=== PATIENT | male | born 1970 | race Caucasian/White ===

== ENCOUNTER → 2020-09-18 08:27 | Outpatient (CLI) | payer BC, OTHER, SELFPAY ==
--- NOTE | ~2020-09-18 | MR_ITS ---
EXAMINATION: MR knee LT wo con DATE: 09/18/2020 09:04 INDICATION: Running injury with medial left knee pain.. TECHNIQUE: Magnetic resonance imaging (MRI) of the left knee was performed without intravenous contra st. Sequences included coronal PD-weighted FSE, coronal PD-weighted FS FSE, sagittal T2-weighted FSE , sagittal PD-weighted FS FSE and axial PD weighted fat saturated FSE. COMPARISON: None. FINDINGS: Medial compartment: Tibial meniscal tear with longitudinal horizontal tear extending to the inferior articular surface of the body and posterior horn. At the inner third of the junction of the body and posterior horn there is increased signal extending cephalad also contact the superior articular surface on sagittal serie s 9, images 7 and 9 suggesting a secondary vertical parrot beak configuration tear along the inner t hird of the posterior horn. There is mild partial-thickness cartilage loss throughout the medial comp artment with smooth chondral surface. Lateral compartment: Lateral meniscus is normal. Articular cartilage is normal. Patellofemoral compartment: There is chondral ulceration and deep fissuring with underlying cortical irregularity and subarticula r edema at the cephalad aspect of the medial patellar facet and at the inferomedial aspect of the lat eral facet. Trochlear cartilage is normal. Ligaments and tendons: Anterior and posterior cruciate ligaments are normal. The medial collateral ligament and fibular roseann ateral ligament complex are normal. The extensor mechanism is normal. The visualized medial and later al hamstring tendons as well as the iliotibial band are normal. Fluid: Physiologic amount of fluid in the joint space. No loose osteochondral bodies identified. Osseous/other: There is prominent marrow edema centered about the medial rim of the anterior weightbearing medial fe moral condyle there is subtle linear low signal underlying the articular surface suggesting a small i ntramedullary stress or impaction fracture line. No pathologic marrow replacing process. IMPRESSION: 1. Likely complex tear of the medial meniscus including both a horizontal longitudinal tear of the nikolay dy and posterior horn and secondary parrot-beak configuration tear along the inner third of the poste rior horn. 2. Prominent marrow edema along the medial rim at the anterior weightbearing medial femoral condyle s urrounding subtle linear low signal underlying the articular cortex consistent with a small intramedu llary stress versus impaction fracture line. 3. 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 Reviewed, dictated and finalized at location A. APPLICATION DEVELOPMENT MANAGER IMPRESSION: 1. Likely complex tear of the medial meniscus including both a horizontal longi tudinal tear of the body and posterior horn and secondary parrot-beak configura tion tear along the inner third of the posterior horn. 2. Prominent marrow edema along the medial rim at the anterior weightbearing me dial femoral condyle surrounding subtle linear low signal underlying the articu lar cortex consistent with a small intramedullary stress versus impaction fract ure line. 3. Mild patellofemoral and to lesser medial compartment osteoarthritis with reg ions of high-grade patellar chondromalacia.
== END ==
PROVIDERS: PCP Family Medicine Adolescent Medicine; Visit Provider Family Medicine Adolescent Medicine
DX: M17.12 Unilateral primary osteoarthritis, left knee (principal); M22.42 Chondromalacia patellae, left knee
CPT/HCPCS: 73721

== ENCOUNTER 2020-09-26 13:33 | Outpatient (CLI) | payer BC, OTHER, SELFPAY ==
--- NOTE | ~2020-09-26 | US_ITS ---
EXAMINATION: US venous doppler [facility] DATE: 09/26/2020 14:40 INDICATION: Acute thromboembolism. Left lower limb pain. TECHNIQUE: Grayscale ultrasound images without and with compression and Doppler ultrasound images of the bilateral lower extremity veins were obtained. COMPARISON: None. FINDINGS: The visualized portions of right common femoral vein, profunda (deep) femoral vein, femoral vein, pop liteal vein, posterior tibial veins, peroneal veins, gastrocnemius vein and greater saphenous vein ou tflow are patent. Noncompressible deep venous thrombosis in the proximal to mid left femoral vein and in the mid to dis sheron left popliteal vein. The visualized portions of left common femoral vein, profunda femoral vein, posterior tibial veins, peroneal veins, gastrocnemius vein and greater saphenous vein outflow are pat ent. IMPRESSION: 1. Deep venous thrombosis left femoral and popliteal veins. 2. No deep venous necrosis in the right lower limb. Reviewed, dictated and finalized at location B. CTOR OF VALUATION
== END 2020-09-26 13:34 | disposition home or self-care (01) ==
PROVIDERS: PCP Family Medicine Adolescent Medicine; Visit Provider Orthopaedic Surgery
DX: I82.403 Acute embolism and thrombosis of unspecified deep veins of lower extremity, bilateral (principal); I82.412 Acute embolism and thrombosis of left femoral vein; I82.432 Acute embolism and thrombosis of left popliteal vein
CPT/HCPCS: 93970

== ENCOUNTER → 2020-10-20 02:33 | Outpatient (CLI) | payer BC, OTHER, SELFPAY ==
[2020-10-20 21:58] LABS: SARS-CoV-2 RNA PCR Negative
== END ==
PROVIDERS: PCP Family Medicine Adolescent Medicine; Visit Provider Orthopaedic Surgery
DX: Z01.812 Encounter for preprocedural laboratory examination (principal); Z20.822 Contact with and (suspected) exposure to COVID-19; M22.42 Chondromalacia patellae, left knee
CPT/HCPCS: C9803; U0003; U0005

== ENCOUNTER 2020-10-23 01:08 | Day surgery (SDC) | payer BC, OTHER, SELFPAY ==
[2020-10-16 16:03] VITALS: BMI 27.7
--- NOTE | 2020-10-20 11:37 | PM.IMHP ---
H&P: HPI History of Present Illness Date/Time: 10/20/20 11:37 Chief Complaint: Left knee pain Narrative: Tico Bah is a 50 year old male with left knee pain and mechanical symptoms. Failed conservative treatment with home exercise regimen, rehab, activity modification. Similar problems on right knee status post surgical treatment with excellent results. Presents now for left knee surgery. Review of Systems Constitutional: Constitutional: Denies fever(s) Eyes: Eyes: Denies blurry vision ENT: Reports Normal hearing present Cardiovascular: Cardiovascular: Denies chest pain and Denies dyspnea Respiratory: Respiratory: Denies dyspnea and Denies wheezing Gastrointestinal: Gastrointestinal: Denies abdominal pain Genitourinary: Genitourinary: Denies urinary urgency Musculoskeletal: Musculoskeletal: Reports as per HPI and Denies numbness Integumentary/Breasts: Skin/Breast: Denies changing lesions and Denies sores Neurologic: Reports Normal hearing present, Denies behavioral changes, Denies confusion, Denies numbness and Denies convulsions Psychiatric: Psychiatric: Denies behavioral changes, Denies confusion and Denies hallucinations Endocrine: Endocrine: Denies heat intolerance Hematologic/Lymphatic: Hematologic/Lymphatic: Denies easy bleeding Allergic/Immunologic: Allergic/Immunologic: Denies wheezing PMFSH Past Medical History Medical History Acute medial meniscus tear of left knee Chondromalacia patellae, left knee Claustrophobia DVT (deep venous thrombosis) Synovitis of left knee Surgical History Surgical History History of right knee surgery 2016, Dr. Darden Social History Social History Smoking status: Never smoker Alcohol intake: never Substance use: never Substance use type: does not use Gender identity (if verbalized by the patient): Male Spiritual care concerns: No Meds Home Medications and Allergies Home Medications Medication Instructions Recorded Confirmed Type hcuadgaupisf-xme-xnmpl acid-vit 1 tablet PO DAILY 09/20/20 10/16/20 History K-lycop 400 mcg-20 mcg-370 mcg tablet rivaroxaban [Xarelto] 20 mg PO DAILY 10/16/20 10/16/20 History Allergies Allergy/AdvReac Type Severity Reaction Status Date / Time No Known Allergies Allergy Verified 09/20/20 10:00 Exam Const: General: healthy appearing; No in distress or confusion Orientation/consciousness: oriented to person, oriented to place, oriented to time and No confusion HENMT: Head: normal to inspection, normocephalic and atraumatic Eyes: Conjunctivae: conjunctivae normal Sclera: sclerae normal Neck: Neck: supple and nontender Resp: Effort & Inspection: normal respiratory effort and no audible wheezes Cardio: Rate: regular rate Rhythm: regular rhythm Skin: General skin exam: no rashes or lesions noted Neuro: General: oriented to person, oriented to place, oriented to time and No confusion Extrem: Right upper extremity: normal to inspection Left upper extremity: normal to inspection Left lower extremity: hip/thigh Details: no tenderness and no swelling, knee Details: tenderness ( medial joint line), swelling ( moderate medial joint line and anterior) Location: of the pre-patellar area, abnormal ROM ( active knee extension -10 degrees, flexion 100?. Passive -5 to 110?) Details: pain with passive ROM Details: with extension and with flexion, Zach's Test Details: negative laterally and positive medially and crepitus ( patellofemoral and knee joint with active motion) Location: at the knee and foot Details: vascular exam Details: dorsalis pedis pulse present and normal capillary refill, tendon exam active flexion normal and active extension normal and motor-sensory exam light-touch normal Psych: Affect: normal affect As
[2020-10-23] VITALS (9 sets, daily range): BP systolic 105–153; BP diastolic 65–91; PULSE 63–75; RESP 12–20; TEMP 36.2–36.3; O2SAT 100
[2020-10-23] MEDS: ACETAMINOPHEN 500 MG TABLET 1000 MG PO (06:30)
--- NOTE | 2020-10-23 06:54 | WPDANESEPPF ---
Anes - Initial Pre Proc Eval Procedure: Operation Date: 10/23/20 07:30 Proposed Procedures p Left Knee Arthroscopy, Debride Meniscus, Synovectomy, Chondroplasty, Proceed As Indicated - Joseph Darden MD Date/Time: 10/23/20 06:54 Surgeon: Joseph Darden MD Pre Op Diagnosis: Lt Knee Pain, Left Meniscus Tear, Chondromalasia Patient Data Age: 50 Gender: M Height: 6 ft 2 in Weight: 98 kg Allergies Allergy/AdvReac Type Severity Reaction Status Date / Time No Known Allergies Allergy Verified 09/20/20 10:00 Home Medications Medication Instructions Recorded Confirmed Type ujfpwtlppinn-adk-pfahs acid-vit 1 tablet PO DAILY 09/20/20 10/16/20 History K-lycop 400 mcg-20 mcg-370 mcg tablet rivaroxaban [Xarelto] 20 mg PO DAILY 10/16/20 10/16/20 History Patient hx anesthesia problems: none Family hx anesthesia problems: none PMFSH Past Medical History Medical History Acute medial meniscus tear of left knee Chondromalacia patellae, left knee Claustrophobia DVT (deep venous thrombosis) Synovitis of left knee Surgical History Surgical History History of right knee surgery 2016, Dr. Darden Social History Social History Smoking status: Never smoker Alcohol intake: never Substance use: never Substance use type: does not use Living arrangements: with family Gender identity (if verbalized by the patient): Male Sexual Orientation (if Verbalized by the Patient): Straight or Heterosexual Spiritual care concerns: No Anes - Eval Final PreProcedure Day of Procedure 10/23/20 06:54 Patient weight: overweight Heart: regular rate and rhythm Lungs: clear to auscultation Airway: Mallampati scale class II Neurological: alert and oriented Last oral intake: >/= 8 hours ASA classification: III Emergent: no Anesthetic plan: proceed Anesthesia type and monitoring: general LMA and standard monitoring Informed Consent: The patient's anesthetic plan and its attendant risks and benefits were discussed with the patient/family/POA. Questions were solicited and answers provided to the satisfaction of the patient/family/POA.
[2020-10-23] MEDS: LACTATED RINGERS 1,000 ML 30 ML IV CONT (06:59)
[2020-10-23] MEDS: KETOROLAC 15 MG/ML VIAL (*BKC) IV PUSH (07:00)
--- NOTE | 2020-10-23 07:22 | WPDHPUPDATE1 ---
History and Physical Update Update Date/Time: 10/23/20 07:22 History and Physical has been reviewed, including an updated exam of the patient. There are NO changes in the patient's condition. Covid test negative. Risks, benefits, and alternatives have been discussed and questions answered. Patient agrees to proceed with procedure.
[2020-10-23] MEDS: ceFAZolin 2 GM/D5W 50 ML 2 GM/50 ML BAG IVPB (07:24)
[2020-10-23] MEDS: BUPIVACAINE/EPINEPHRINE 0.5% 30 ML VIAL 10 ML INFILTRATE (08:09)
--- NOTE | 2020-10-23 09:00 | PM.PROC ---
Procedure Note - Detailed Date of procedure: 10/23/20 Pre-op diagnosis: Lt Knee Pain, Left Meniscus Tear, Chondromalasia Left knee synovitis, medial meniscus tear, chondromalacia Post-op diagnosis: same Procedure performed: Left knee arthroscopy with synovectomy medial and lateral compartment, anterior and anterior fat pad, peripatellar with medial and lateral plica., partial medial meniscectomy, chondroplasty patellofemoral and medial femoral condyle. Description of procedure: Indications: Patient is a 50-year-old gentleman with left knee pain and mechanical symptoms. MRI demonstrates synovitis, medial meniscus tear and chondromalacia. Patient failed non operative treatment with therapy, home exercises, activity modifications and anti-inflammatories. Pain on a daily basis with weight-bearing activity. Presents now for operative treatment. Previous operative treatment of the right knee with similar MRI findings and good result. What was done: Informed consent given by patient. Operative extremity marked in preoperative holding area. Patient received intravenous antibiotics. Patient brought to operating room and underwent general anesthetic by anesthesia team. Positioned supine on operating room table. Left leg placed into a posterior thigh leg greco. Foot of the table dropped to 90? and right leg padded out of the field. Time-out performed confirming patient, site of surgery and plan. Left knee prepped and draped in usual sterile surgical fashion using ChloraPrep skin solution. Standard arthroscopic portals made by using a 11 blade knife for the anterior lateral portal 1st. Capsule penetrated bluntly. Camera and inflow started. The below operative findings noted. Intra-articular visualization used to position the anterior medial portal using 22 gauge spinal needle. A 11 blade knife used for the skin and blunt penetration of the capsule. 4.7 millimeter arthroscopic shaver introduced and partial medial meniscectomy of the loose and torn portion performed. Edge of meniscus completed with arthroscopic Wand. Arthroscopic Wand used to perform chondroplasty of the patellofemoral articulation and the medial femoral condyle. Shaver reintroduced and a synovectomy performed of the anterior fat pad and extensive synovium anteriorly, medial and lateral compartments; as well as medial and lateral plica. Bleeding points coagulated with Wand. Knee inspected, no loose pieces noted. 1 liter of irrigant infused and suction out. Arthroscopic cannulas removed. Skin closed with 4 nylon interrupted suture. Local anesthetic with 0.25% Marcaine. Sterile dressing applied. Patient awoken from anesthesia, extubated and taken to recovery room in stable condition. All sponge needle and instrument counts correct at the end of the case. Implants: None Anesthesia: GLMA Surgeon: Joseph Darden MD Estimated blood loss (mL): 5 Tourniquet time (min): 0 Drains: No Packing: No Pathology: none sent Complications: None Condition: stable Disposition: PACU Findings: Left knee arthroscopic visualization showed complex tear of the posterior horn medial meniscus with extension and delamination to the medial root. Tear in the white red zone. Lateral meniscus and compartment intact. Grade 2 chondromalacia medial femoral condyle. Medial tibial plateau intact. ACL and PCL intact. Grade 4 chondromalacia involving the lateral facet of the patella proximally 10 mm x 8 mm. Grade 2 chondromalacia of the remainder of the patella. Grade 1 chondromalacia of the femoral trochlea. Extensive synovitis peripatellar area medial and lateral and anterior compartments. Extensive fat pad hypertrophy. Thickened medial and lateral plica.
== END 2020-10-23 10:25 | disposition home or self-care (01) ==
PROVIDERS: PCP Family Medicine Adolescent Medicine; Visit Provider Orthopaedic Surgery
PROC: (CPT 29870; principal; 2020-10-23 07:30)
DX: S83.232A Complex tear of medial meniscus, current injury, left knee, initial encounter (principal); M22.42 Chondromalacia patellae, left knee; M65.862 Other synovitis and tenosynovitis, left lower leg; Z86.718 Personal history of other venous thrombosis and embolism
CPT/HCPCS: 29876; 29881; A9270; J0690; J1100; J1885; J2250; J2405; J2704; J3010; J7120

== ENCOUNTER 2021-09-13 15:06 | Outpatient (CLI) | payer BC, SELFPAY ==
--- NOTE | ~2021-09-13 | CT_ITS ---
EXAMINATION: CT pelvis w con DATE: 09/13/2021 15:50 INDICATION: Left inguinal hernia. TECHNIQUE: Computed tomography (CT) of the pelvis was performed with 100 mL Omnipaque 350 intravenous contrast. Automated exposure control and iterative reconstruction technique were employed. The dose- length product was 380.61 mGy-cm. COMPARISON: None FINDINGS: There are no dilated loops of bowel. The appendix is normal. There are no pathologically en larged lymph nodes. There is no free intraperitoneal fluid. There are bilateral inguinal hernias cont aining fat. There is mild lumbar spondylosis. IMPRESSION: 1. Bilateral inguinal hernias containing fat. Reviewed, dictated and finalized at location B. ICAL PROJECT MANAGER
--- NOTE | ~2021-09-13 | US_ITS ---
EXAMINATION: US scrotum doppler DATE: 09/13/2021 15:43 INDICATION: Left testicular pain. TECHNIQUE: Grayscale and Doppler ultrasound images of the testes were obtained. COMPARISON: CT pelvis 09/13/2021 FINDINGS: The right testis measures 4.1 x 2.2 x 2.7 cm. The left testis measures 3.9 x 2.1 x 2.6 cm. There is normal vascular flow to both testes. The right epididymis is normal with normal vascular lv w. The left epididymis is normal with normal vascular flow. There is no varicocele or hydrocele. IMPRESSION: 1. Normal testes. Reviewed, dictated and finalized at location B. RIBUTION MANAGER IMPRESSION: 1. Normal testes.
== END 2021-09-13 15:07 | disposition home or self-care (01) ==
LOC: ANHIMG 15:11
PROVIDERS: PCP Family Medicine Adolescent Medicine; Visit Provider Urology
DX: N50.812 Left testicular pain (principal); K40.20 Bilateral inguinal hernia, without obstruction or gangrene, not specified as recurrent
CPT/HCPCS: 72193; 76870; 93976; Q9967

== ENCOUNTER → 2022-04-22 15:29 | Outpatient (CLI) | payer BC, SELFPAY ==
--- NOTE | ~2022-04-22 | XR_ITS ---
EXAMINATION: XR chest 2V Exam Date/Time: 04/22/2022 16:08 CDT HISTORY: R63.4 - Abnormal weight loss Comparison: X-ray RIBS 01/19/2008. RESULT: Lines, tubes, and devices: None. Lungs and pleura: Ill-defined opacity projecting in the peripheral right lower lung without definite correlate in the lateral view. Cardiomediastinal silhouette: Stable. Other: No acute osseous or upper abdominal finding. IMPRESSION: Ill-defined right lower lung opacity, may reflect summation artifact or a focus of infection. Conside r noncontrast CT of the chest for further characterization and to exclude a pulmonary nodule. Reviewed, dictated and finalized at location K. IMPRESSION: Ill-defined right lower lung opacity, may reflect summation artifact or a focus of infection. Consider noncontrast CT of the chest for further characterizatio n and to exclude a pulmonary nodule.
== END ==
PROVIDERS: PCP Family Medicine Adolescent Medicine; Visit Provider Family Medicine Adolescent Medicine
DX: R61 Generalized hyperhidrosis (principal); R63.4 Abnormal weight loss; R91.8 Other nonspecific abnormal finding of lung field
CPT/HCPCS: 71046

== ENCOUNTER 2022-05-07 09:19 | Outpatient (CLI) | payer BC, SELFPAY ==
--- NOTE | ~2022-05-07 | CT_ITS ---
EXAMINATION:CT diagnostic chest wo con DATE: 05/07/2022 09:47 INDICATION: Abnormal chest radiograph. TECHNIQUE: Computed tomography (CT) of the chest was performed without intravenous contrast. Automate d exposure control and iterative reconstruction technique were employed. The dose-length product (DLP ) was 297.76 mGy-cm. COMPARISON: Chest 2 views 04/22/2022 FINDINGS: There is mild scarring at the lung apices. No pleural effusion. The heart size is normal. N o pericardial effusion. There are coronary artery calcifications. There is a 2.7 cm cyst in the liver . There is a 5 mm stone in right kidney. There is mild thoracic spondylosis. IMPRESSION: 1. Mild scarring at the lung apices. Reviewed, dictated and finalized at location A.
== END 2022-05-07 09:20 | disposition home or self-care (01) ==
PROVIDERS: PCP Family Medicine Adolescent Medicine; Visit Provider Family Medicine Adolescent Medicine
DX: R93.89 Abnormal findings on diagnostic imaging of other specified body structures (principal)
CPT/HCPCS: 71250

== ENCOUNTER 2022-11-08 00:25 | Day surgery (SDC) | payer BC, SELFPAY ==
[2022-10-25 13:17] VITALS: BMI 26.4
--- NOTE | 2022-11-06 14:35 | PC.NURSE ---
OFFICE CALLED AND MESSAGE LEFT FOR DR. MADERA REGARDING ANTIBIOTICS DAY OF PROCEDURE REQUESTED PER PT FOR PENILE IMPLANT DONE IN 2021, DR. MADERA AGREES PT SHOULD HAVE ANTIBIOTICS AND I ORDERED ACCORDING TO HIS SURGICAL PREAUTH. JOINT REPLACEMENT. PT CALLED AND INFORMED.
[2022-11-08 10:20] VITALS: BP 123/94; PULSE 81; RESP 18; TEMP 36.1; O2SAT 100
--- NOTE | 2022-11-08 10:32 | P.PNAN_ITS ---
Anes - Initial Pre Proc Eval Procedure: Operation Date: 11/08/22 11:15 Proposed Procedures p Screening Colonoscopy - Isaiah Patten MD Date/Time: 11/08/22 10:32 Surgeon: Isaiah Patten MD Pre Op Diagnosis: neoplasm screening Patient Data Age: 52 Gender: M Height: 1.88 m Weight: 96.2 kg Last Vital Signs Temp 36.1 C L 11/08/22 10:20 Pulse 81 11/08/22 10:20 Resp 18 11/08/22 10:20 BP 123/94 H 11/08/22 10:20 Pulse Ox 100 11/08/22 10:20 O2 Del Method Room Air 11/08/22 10:20 Allergies Allergy/AdvReac Type Severity Reaction Status Date / Time sulfamethoxazole Allergy Mild Rash Verified 11/08/22 10:14 [From Bactrim] trimethoprim [From Bactrim] Allergy Mild Rash Verified 11/08/22 10:14 Home Medications Medication Instructions Recorded Confirmed Type No Home Medications 11/08/22 11/08/22 History Patient hx anesthesia problems: none Family hx anesthesia problems: none Results Review: All pre-operative results and documents have been reviewed as part of the pre- operative evaluation. [facility] Past Medical History Medical History (Updated 04/24/22 @ 08:31 by Katherine Banda) Acute medial meniscus tear of left knee Chondromalacia patellae, left knee Claustrophobia DVT (deep venous thrombosis) Hyperthyroidism Synovitis of left knee Surgical History Surgical History H/O left knee surgery Torn Meniscus 10/22 H/O vasectomy History of right knee surgery 2015, Dr. 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 Gender identity (if verbalized by the patient): Male Sexual Orientation (if Verbalized by the Patient): Straight or Heterosexual Spiritual care concerns: No Anes - Eval Final PreProcedure Day of Procedure 11/08/22 10:32 Patient weight: overweight Heart: regular rate and rhythm Lungs: clear to auscultation Airway: Mallampati scale class II Neurological: alert and oriented Last oral intake: >/= 8 hours ASA classification: II Emergent: no Anesthetic plan: proceed Anesthesia type and monitoring: general GIVS and standard monitoring Results Review: All pre-operative results and documents have been reviewed as part of the pre- operative evaluation. Informed Consent: The patient's anesthetic plan and its attendant risks and benefits were discussed with the patient/family/POA. Questions were solicited and answers provided to the satisfaction of the patient/family/POA.
[2022-11-08] MEDS: AMPICILLIN 2 GM/NS 100 ML 2 GM/100 ML BAG IVPB (10:39)
[2022-11-08] MEDS: LACTATED RINGERS 1,000 ML 150 ML IV CONT (10:40)
--- NOTE | 2022-11-08 10:52 | PM.HPGS ---
History of Present Illness History of Present Illness Consent: Risks, benefits, and alternatives have been discussed and questions answered. Patient agrees to proceed with procedure. Chief complaint: neoplasm screening Narrative: Tico Bah is a 52 year old male Presents for screening colonoscopy. Patient's current weight appetite and bowel movements are normal. Patient denies abdominal pain. He has had no bleeding. Family history is noncontributory. Review of Systems Review of Systems: Review of systems noncontributory. [facility] Past Medical History Medical History (Updated 11/08/22 @ 10:53 by Isaiah Patten MD) Acute medial meniscus tear of left knee Chondromalacia patellae, left knee Claustrophobia DVT (deep venous thrombosis) Hyperthyroidism Synovitis of left knee Surgical History Surgical History H/O left knee surgery Torn Meniscus 10/22 H/O vasectomy History of right knee surgery 2015, Dr. 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 Gender identity (if verbalized by the patient): Male Sexual Orientation (if Verbalized by the Patient): Straight or Heterosexual Spiritual care concerns: No Meds Home Medications and Allergies Home Medications Medication Instructions Recorded Confirmed Type No Home Medications 11/08/22 11/08/22 History Allergies Allergy/AdvReac Type Severity Reaction Status Date / Time sulfamethoxazole Allergy Mild Rash Verified 11/08/22 10:14 [From Bactrim] trimethoprim [From Bactrim] Allergy Mild Rash Verified 11/08/22 10:14 Vital Signs Vital Signs - 24 hr 11/08/22 10:20 Temperature 97.0 F L Pulse Rate 81 Respiratory Rate 18 Blood Pressure 123/94 H Pulse Oximetry 100 Oxygen Delivery Room Air Exam Narrative: Physical exam reveals patient to be alert. Vital signs stable. HEENT exam is unremarkable. Patient is Anicteric. Lungs are clear to auscultation and percussion. Heart is without murmur or extra sounds. Abdomen bowel sounds present soft nontender with no organomegaly. Digital external rectal exam is normal. Assessment and Plan Assessment and plan (1) Encounter for screening colonoscopy: Code(s): Z12.11 - Encounter for screening for malignant neoplasm of colon Status: Acute Assessment and Plan: Patient presents for screening colonoscopy. He appears to be at average risk for colon polyps. Further recommendations may be given after endoscopy.
[2022-11-08] MEDS: SIMETHICONE ORAL SUSPENSION 20 MG/0.3 ML 30 ML BOTTLE 0.6 ML IRRIGATION (11:08)
[2022-11-08 11:19] VITALS: BP 96/66; PULSE 82; RESP 17; O2SAT 97
[2022-11-08 11:29] VITALS: BP 103/65; PULSE 79; RESP 21; O2SAT 100
[2022-11-08 11:39] VITALS: BP 119/86; PULSE 77; RESP 20; O2SAT 100
== END 2022-11-08 11:56 | disposition home or self-care (01) ==
PROVIDERS: PCP Family Medicine Adolescent Medicine; Visit Provider Internal Medicine Gastroenterology
PROC: 0DJD8ZZ Inspection of Lower Intestinal Tract, Via Natural or Artificial Opening Endoscopic (ICD-10-PCS; CPT 45378; principal; 2022-11-08 11:15)
DX: Z12.11 Encounter for screening for malignant neoplasm of colon (principal); E05.90 Thyrotoxicosis, unspecified without thyrotoxic crisis or storm; K64.8 Other hemorrhoids; F40.240 Claustrophobia; Z86.718 Personal history of other venous thrombosis and embolism
CPT/HCPCS: 45378; J0290; J2704; J7120

== ENCOUNTER → 2023-04-15 13:05 | Outpatient (CLI) | payer BC, SELFPAY ==
--- NOTE | ~2023-04-15 | XR_ITS ---
EXAMINATION: XR chest 2V DATE: 04/15/2023 13:14 INDICATION: Persistent cough TECHNIQUE: PA and lateral views of the chest are obtained. COMPARISON: 04/22/2022 FINDINGS: The lungs are free of acute opacities. No pleural effusion or pneumothorax. The cardiomedia stinal silhouette is normal. There is mild thoracic spondylosis. IMPRESSION: 1. No acute cardiopulmonary abnormality. Reviewed, dictated and finalized at location L.
== END ==
PROVIDERS: PCP Family Medicine Adolescent Medicine; Visit Provider Family Medicine Adolescent Medicine
DX: R05.3 Chronic cough (principal)
CPT/HCPCS: 71046

== ENCOUNTER 2023-08-21 09:12 | Outpatient (CLI) | payer BC, SELFPAY ==
--- NOTE | ~2023-08-21 | CT_ITS ---
Non-contrast CT scan of the Abdomen and Pelvis Clinical indication: Erectile dysfunction, arterial insufficiency Technique: 2.5 mm axial scans were obtained through the abdomen and pelvis without intravenous or or al contrast. Dose reduction technique was used on this scan by utilizing automated exposure control a nd iterative reconstruction technique. The dose-length product (DLP) was 654.55 mGy-cm. COMPARISON: 09/13/2021 Findings: Images through the lung bases reveal no abnormalities. Nonobstructing right renal stones measuring up to 7 mm. No left renal stones. No ureteral stone or hy dronephrosis on either side. The liver, spleen, pancreas, gallbladder, and adrenals appear normal. There is no aortic aneurysm. There is no evidence of bowel obstruction. Images through the pelvis were performed. There is no evidence of ascites or lymphadenopathy. Urinary bladder unremarkable. Penile prosthesis with reservoir present. No pelvic mass evident. Impression: Nonobstructing right nephrolithiasis. Reviewed, dictated and finalized at [facility]. NICAL BUSINESS SYSTEMS ANALYST Impression: Nonobstructing right nephrolithiasis.
== END 2023-08-21 09:13 | disposition home or self-care (01) ==
PROVIDERS: PCP Family Medicine Adolescent Medicine; Visit Provider Urology
DX: N20.0 Calculus of kidney (principal); N52.01 Erectile dysfunction due to arterial insufficiency
CPT/HCPCS: 74176

== ENCOUNTER 2023-09-05 08:03 | Outpatient (CLI) | payer BC, SELFPAY ==
--- NOTE | ~2023-09-05 | XR_ITS ---
Supine and upright views of the abdomen Clinical history: Right kidney stone Findings: Bowel gas pattern is nonspecific. No evidence for obstruction or free air. 5 mm right upper pole renal stone present. Probable 2 mm right lower pole renal stone. No definite left-sided stones seen. Osseous structures are intact. Impression: Right nephrolithiasis, as above. Reviewed, dictated and finalized at [facility]. ERY GRINDER Impression: Right nephrolithiasis, as above.
== END 2023-09-05 08:04 | disposition home or self-care (01) ==
LOC: ANHIMG 08:06
PROVIDERS: PCP Family Medicine Adolescent Medicine; Visit Provider Urology
DX: N20.0 Calculus of kidney (principal)
CPT/HCPCS: 74018

== ENCOUNTER 2023-10-01 14:50 | Outpatient (CLI) | payer BC, SELFPAY ==
--- NOTE | ~2023-10-01 | XR_ITS ---
Supine and upright views of the abdomen Clinical history: Right kidney stone COMPARISON: 524 Findings: Bowel gas pattern is nonspecific. No evidence for obstruction or free air. Tiny right lower pole renal stone appears to be unchanged. The larger stone seen on prior exam is not clearly visuali zed currently. Questionable distal right ureteral stone, not seen on prior exam. Osseous structures a re intact. Impression: Stable tiny right lower pole renal stone. Larger right upper pole stone seen on prior exam not clearl y visualized. Questionable distal right ureteral stone. Reviewed, dictated and finalized at location M. LIFE ENFORCEMENT MAJOR Impression: Stable tiny right lower pole renal stone. Larger right upper pole stone seen on prior exam not clearly visualized. Questionable distal right ureteral stone.
== END 2023-10-01 14:51 | disposition home or self-care (01) ==
PROVIDERS: PCP Family Medicine Adolescent Medicine; Visit Provider Urology
DX: N20.0 Calculus of kidney (principal)
CPT/HCPCS: 74018

== ENCOUNTER 2023-10-13 14:57 | Outpatient (CLI) | payer BC, SELFPAY ==
--- NOTE | ~2023-10-13 | CT_ITS ---
EXAMINATION: CT abdomen pelvis wo con DATE: 10/13/2023 15:25 INDICATION: Right kidney stone TECHNIQUE: Computed tomography (CT) of the abdomen and pelvis was performed without intravenous contr ast. Automated exposure control and iterative reconstruction technique were employed. Exam dose: 281 .23 mGy-cm total exam DLP. COMPARISON: 10/01/2023 KUB 08/21/2023 CT abdomen pelvis FINDINGS: The lung bases are clear. Normal heart size. No pericardial or pleural effusion. Contracted gallbladder. No bile duct or pancreatic duct dilatation. No hepatic, splenic, pancreatic, and adrenal space-occupying mass lesion. Several millimeter lower pole nonobstructing right renal calculus. Up to approximately 3.6 x 6 mm distal right ureteral calculus. No associated hydroureteronephrosis is noted. Approximately 2.3 x 2.5 cm probable left renal cyst. No other apparent renal space-occupying mass les ion is noted on either side on this limited noncontrast examination. Normal caliber of the abdominal aorta. No intraperitoneal or retroperitoneal or pelvic mass lesion or adenopathy or ascites is noted. Inflatable penile prosthesis is noted. The urinary bladder is relatively evacuated. Mild prostate enlargement and calcification. The appendix appears normal. No bowel obstruction or intraperitoneal free air. Included skeletal structures are unremarkable. IMPRESSION: Approximately 3.6 x 6 mm distal right ureteral calculus (previously in the upper pole of the right kidney on 08/21/2023) without associated right hydroureteronephrosis Several millimeter nonobstructing lower pole right renal calculus Approximately 2.5 cm left renal probable cyst Reviewed, dictated and finalized at [facility]. Reviewed, dictated and finalized at location B. FRAME SYSTEMS PROGRAMMER IMPRESSION: Approximately 3.6 x 6 mm distal right ureteral calculus (previousl y in the upper pole of the right kidney on 08/21/2023) without associated right hydroureteronephrosis Several millimeter nonobstructing lower pole right renal calculus Approximately 2.5 cm left renal probable cyst
== END 2023-10-13 14:58 | disposition home or self-care (01) ==
PROVIDERS: PCP Family Medicine Adolescent Medicine; Visit Provider Physician Assistant
DX: N20.0 Calculus of kidney (principal)
CPT/HCPCS: 74176

== ENCOUNTER 2023-10-29 09:17 | Outpatient (CLI) | payer BC, SELFPAY ==
--- NOTE | ~2023-10-29 | XR_ITS ---
EXAMINATION: XR abdomen/kub 1V DATE: 10/29/2023 09:33 INDICATION: Right kidney stone. TECHNIQUE: A supine view of the abdomen on 2 radiographs was obtained. COMPARISON: CT abdomen and pelvis 10/13/2023 FINDINGS: There are no dilated loops of bowel. There is a large volume of stool in the colon. There i s a 3 mm stone in right kidney lower pole. There are 4 mm and 3 mm stones in distal right ureter. The re are phleboliths in the pelvis. There is a penile prosthesis. IMPRESSION: 1. Stones in the right kidney and distal right ureter. Reviewed, dictated and finalized at location A. SUPERVISOR
== END 2023-10-29 09:18 | disposition home or self-care (01) ==
LOC: ANHIMG 09:19
PROVIDERS: PCP Family Medicine Adolescent Medicine; Visit Provider Physician Assistant
DX: N20.0 Calculus of kidney (principal)
CPT/HCPCS: 74018

== ENCOUNTER 2023-11-12 08:18 | Outpatient (CLI) | payer BC, SELFPAY ==
--- NOTE | ~2023-11-12 | XR_ITS ---
EXAMINATION: XR abdomen/kub 1V DATE: 11/12/2023 08:33 INDICATION: Right kidney stone. TECHNIQUE: A supine view of the abdomen on 2 radiographs was obtained. COMPARISON: Abdomen radiographs 10/29/2023, 10/01/2023, CT abdomen and pelvis 10/13/2023 FINDINGS: There are no dilated loops of bowel. The kidneys are obscured by bowel. There is a 3 mm sto ne in right kidney lower pole. There are phleboliths in the pelvis. There is a penile prosthesis. The re are 4 mm and 3 mm stones in distal right ureter. IMPRESSION: 1. 4 mm and 3 mm stones in distal right ureter. 2. 3 mm stone in right kidney. Reviewed, dictated and finalized at location A.
== END 2023-11-12 08:19 | disposition home or self-care (01) ==
PROVIDERS: PCP Family Medicine Adolescent Medicine; Visit Provider Urology
DX: N20.2 Calculus of kidney with calculus of ureter (principal)
CPT/HCPCS: 74018

== ENCOUNTER 2023-12-02 10:33 | Outpatient (CLI) | payer BC, SELFPAY ==
--- NOTE | ~2023-12-02 | XR_ITS ---
EXAMINATION: XR abdomen/kub 1V DATE: 12/02/2023 10:56 INDICATION: Right kidney stone. TECHNIQUE: A supine view of the abdomen on 2 radiographs was obtained. COMPARISON: Abdomen radiographs 11/12/2023 FINDINGS: There are no dilated loops of bowel. There are phleboliths in the pelvis. IMPRESSION: 1. No visible urolithiasis. Reviewed, dictated and finalized at location A. IMPRESSION: 1. No visible urolithiasis.
== END 2023-12-02 10:34 | disposition home or self-care (01) ==
LOC: ANHIMG 10:35
PROVIDERS: PCP Family Medicine Adolescent Medicine; Visit Provider Urology
DX: N20.1 Calculus of ureter (principal)
CPT/HCPCS: 74018

== ENCOUNTER 2024-03-23 16:05 | Outpatient (CLI) | payer BC, SELFPAY ==
--- NOTE | ~2024-03-23 | XR_ITS ---
EXAM: XR abdomen/kub 1V DATE: 03/23/2024 16:23 HISTORY: RIGHT KIDNEY STONE . COMPARISON: 12/02/2023; CT abdomen pelvis 10/13/2023. FINDINGS: Clear lung bases. Normal bowel gas pattern. No organomegaly. 2 mm right lower pole calcifi cation, unchanged. Regional bones and soft tissues normal for age. Surgical clips over the left pelvi s IMPRESSION: Stable right nephrolithiasis. Reviewed, dictated and finalized at location K.
== END 2024-03-23 16:06 | disposition home or self-care (01) ==
LOC: ANHIMG 16:07
PROVIDERS: PCP Family Medicine Adolescent Medicine; Visit Provider Physician Assistant
DX: N20.0 Calculus of kidney (principal)
CPT/HCPCS: 74018

== ENCOUNTER 2024-03-31 13:25 | Outpatient (CLI) | payer BC, SELFPAY ==
--- NOTE | ~2024-03-31 | CT_ITS ---
EXAMINATION: CT abdomen pelvis wo con DATE: 03/31/2024 13:52 INDICATION: Right kidney stone. Flank pain. TECHNIQUE: Computed tomography (CT) of the abdomen and pelvis was performed without intravenous contr ast. Automated exposure control and iterative reconstruction technique were employed. The dose-length product was 274.70 mGy-cm. COMPARISON: CT abdomen and pelvis 10/13/2023 FINDINGS: The visualized portions of the lung bases demonstrate mild atelectasis. No pleural effusion . The heart size is normal. No pericardial effusion. The liver, gallbladder, spleen, pancreas, and ad renal glands are normal. There is a 3 mm stone in right kidney. There is a 2.9 cm cyst in left kidney . There is a right inguinal hernia containing fat. A penile implant is noted. There are no dilated lo ops of bowel. The appendix is normal. There are no pathologically enlarged lymph nodes. There is no f ree intraperitoneal fluid. There is mild thoracic and lumbar spondylosis. IMPRESSION: 1. 3 mm nonobstructing right kidney stone. Reviewed, dictated and finalized at location A.
== END 2024-03-31 13:26 | disposition home or self-care (01) ==
LOC: ANHIMG 13:25
PROVIDERS: PCP Family Medicine Adolescent Medicine; Visit Provider Urology
DX: N20.0 Calculus of kidney (principal)
CPT/HCPCS: 74176

== ENCOUNTER 2024-10-27 10:36 | Outpatient (CLI) | payer BC, SELFPAY ==
--- NOTE | ~2024-10-27 | XR_ITS ---
EXAMINATION: XR abdomen/kub 1V DATE: 10/27/2024 10:49 INDICATION: Right kidney stone. TECHNIQUE: A supine view of the abdomen on 2 radiographs was obtained. COMPARISON: CT abdomen and pelvis 03/31/2024 FINDINGS: There are no dilated loops of bowel. There are phleboliths in the pelvis. There is no visib le urolithiasis. IMPRESSION: 1. No visible urolithiasis. Reviewed, dictated and finalized at location A. MATOR AND DRAFTER SUPERVISOR IMPRESSION: 1. No visible urolithiasis.
--- OUTSIDE RECORDS SUMMARY | 2024-10-27 12:03 | XMS_ITS | Clinical Summary ---
Author Organization [facility] Address [address] [place] [id number] Care Team Providers Care Continuous Improvement Facilitator Name Role Phone Brady Kaufman MD Primary Care Prov ider Allergies Active Allergy Reactions Criticality Noted Date Comments Sulfamethoxazole-Trimethoprim Rash Medium 2021 Medications methIMAzole (TAPAZOLE) 5 mg tablet Take 1 tablet (5 mg total) by mouth daily 30 tablet 1 07/18/2022 Active Active Problems Problem Noted Date Diagnosed Date Preop cardiovascular exam 07/02/2022 Abnormal ECG 07/02/2022 Erectile dysfunction 07/02/2022 Hyperthyroidism 05/05/2022 Surgical History Surgery Date Site/Laterality Comments KNEE ARTHROSCOPY W/ LATERAL RELEASE Right knee October 2015, Left knee Oct 2019 VASECTOMY January 2003, Micro den ervation left side Apr 22 Family History Medical History Relation Name Comments Cancer Father Cancer Mother Relation Name Status Comments Father Mother Social History Tobacco Use Types Packs/Day Years Used Date Smoking Tobacco: Never Smokeless Tobacco: Never Tobacco Cessation:Counseling Given: Not Answered Personal Safety Answer Date Recorded Getting School Help Needed Not on file 11/15 Sex and Gender Information Value Date Recorded Sex Assigned at Not on file Legal Sex Male 3:06 PM CDT Gender Identity Not on file Sexual Orientation Not on file Obstetrics History Last Filed Vital Signs Vital Sign Reading Time Taken Comments Blood Pressure 114/62 07/02/2022 3:28 PM CDT Pulse 85 07/02/2022 3:28 PM CDT Temperature 36.4 C (97.6 F) 05/03/2022 2:38 PM CDT Respiratory Rate - - Oxygen Saturation 98% 07/02/2022 3:28 PM CDT Inhaled Oxygen Concentration - - Weight 93.4 kg (206 lb) 07/02/2022 3:28 PM CDT Height 188 cm (6' 2 ) 07/02/2022 3:28 PM CDT Body Mass Index 26.45 07/02/2022 3:28 PM CDT Plan of Treatment Health Maintenance Due Date Last Done Comments Colon Cancer Screening-Colonoscopy 1971 Depression Screening 1971 Hepatitis C Screening 1971 Prostate Cancer Screening-PSA 1971 DTaP/Tdap/Td Vaccine (1 - Tdap) 1982 Hepatitis B Screening 1989 Regular Well Visit/Exam 18-64 1989 Zoster Vaccine (1 of 2) 2021 Covid-19 Vaccine (2 - 2023-2 5 season) 2024 12/10/2020 Influenza Vaccine (#1) 2024 Pneumococcal vaccine <65 Aged Out No longer eligible based on patient's age to complete this topic Insurance [facility] Care Teams Continuous Improvement Facilitator Relationship Specialty Start Date End Date Brady Kaufman MD [address] [place] [address] PCP - General Family Medicine 05/01/22
--- OUTSIDE RECORDS SUMMARY | 2024-10-27 12:03 | XMS_ITS | Continuity of Care Document ---
Author Name [facility] Organization [facility] Care Team Providers Care Paint Maker Name Role Phone [facility] Unavailable Unavailable Problems Combined list of problems from Department of Defense and Veterans Affairs facilities. It does not include entries that were removed or entered in error. Problem Status Onset Date Problem Type Date of Resolution Comments Source visit for: services physical Inactive 05/31/2016 Condition DoD gastroenteritis Inactive Condition DoD Allergies, Adverse Reactions, Alerts Combined list of allergies from Department of Defense and Veterans Affairs facilities. It does not include entries that were removed or entered in error. Substance Category Reaction Severity Reaction type Status Date Reported Comments Source No Known Allergies Drug allergy (disorder) active 07/05/2017 [facility] [place] ([facility]) Immunizations Combined list of available immunizations from the Department of Defense and Veterans Affairs facilities. Immunization Series Date Given Administered By Site Reaction Lot Number CVX Code Drug Sheriff Status Comments Source influenza virus vaccine, unspecified 2020 [id number] [id number] 88 complet ed influenza virus vaccine, unspecifi ed 06/14/21 Given Ambulat ory Pharmac y SARS-CoV-2 (COVID-19) Ad26 vaccine, rec 2020 [id number] complet ed SARS-CoV- 2 (COVID-19 ) Ad26 vaccine, rec 12/10/20 Given Ambulat ory Pharmac y typhoid Vi capsular polysaccharid e vac 2019 [id number] sanofi pasteur complet ed typhoid Vi capsular polysacch aride vac 08/05/20 Given Ambulat ory Pharmac y influenza, injectable, quadrivalent- pf 2019 [id number] 150 Seqirus complet ed influenza , injectabl e, quadrival ent-pf 08/05/20 Given Ambulat ory Pharmac y tetanus-dipht h toxoids (Td) adult/adol 2019 [id number] 09 sanofi pasteur complet ed tetanus-d iphth toxoids (Td) adult/ado l 05/13/20 Given Ambulat ory Pharmac y influenza, injectable, quadrivalent- pf 2018 [id number] 150 Seqirus complet ed influenza , injectabl e, quadrival ent-pf 07/04/19 Given Ambulat ory Pharmac y influenza, injectable, quadrivalent 2017 [id number] 158 Seqirus complet ed influenza , injectabl e, quadrival ent 07/04/18 Given Ambulat ory Pharmac y typhoid Vi capsular polysaccharid e vac 2017 [id number] sanofi pasteur complet ed typhoid Vi capsular polysacch aride vac 01/03/18 Given Ambulat ory Pharmac y Influenza, inj, MDCK, quadrivalent- pf 2016 [id number] Seqirus complet ed Influenza , inj, MDCK, quadrival ent-pf 08/02/17 Given Ambulat ory Pharmac y anthrax vaccine 2015 [id number] Emergent Biosolutions complet ed anthrax vaccine 01/06/16 Given Ambulat ory Pharmac y anthrax vaccine 8 2015 [id number] 24 [employer] [place] ([facility]) complet ed anthrax vaccine DoD typhoid Vi capsular polysaccharid e vac 2014 [id number] 101 sanofi pasteur complet ed typhoid Vi capsular polysacch aride vac 05/13/15 Given Ambulat ory Pharmac y typhoid Vi capsular polysaccharid e vaccine 1 2014 [id number] 101 Sanofi Pasteur ([facility]) complet ed typhoid Vi capsular polysacch aride vaccine DoD measles/mumps /rubella virus vaccine 2013 [id number] Merck & Company Inc complet ed measles/m umps/rube lla virus vaccine 10/30/13 Given Ambulat ory Pharmac y measles, mumps and rubella virus vaccine 2 2013 [id number] 03 Merck (MSD) complet ed measles, mumps and rubella virus vaccine DoD anthrax vaccine 2010 [id number] 24 [employer] complet ed anthrax vaccine 05/27/11 Given Ambulat ory Pharmac y anthrax vaccine 7 2010 [id number] 24 [employer] [place] ([facility]) complet ed anthrax vaccine DoD tetanus, diphtheria, acellular pertu is 2009 [id number] 115 sanofi pasteur complet ed tetanus, diphtheri a, acellular pertussis 05/13/10 Given Ambulat ory Pharmac y hepatitis B adult vaccine 2009 [id number] [id number] 43 GlaxoSmithKli ne complet ed hepatitis B adult vaccine 05/13/10 Given Ambulat ory Pharmac y hepatitis B vaccine, adult dosage 3 2009 [id number] 1CA 43 SmithKline (SKB) complet ed hepatitis B vaccine, adult dosage DoD tetanus toxoid, reduced diphtheria toxoid, and acellular pertu is vaccine, adsorbed 1 2009 [id number] 115 Sanofi Pasteur (PMC) complet ed tetanus toxoid, reduced diphtheri a toxoid, and acellular pertussis vaccine, adsorbed DoD hepatitis B adult vaccine 2009 [id number] 4BA 43 GlaxoSmithKli ne complet ed hepatitis B adult vaccine 12/10/09 Given Ambulat ory Pharmac y anthrax vaccine 2009 [id number] [employer] complet ed anthrax vaccine 12/10/09 Given Ambulat ory Pharmac y anthrax vaccine 6 2009 [id number] 24 [employer] [place] ([facility]) complet ed anthrax vaccine DoD hepatitis B vaccine, adult dosage 2 2009 [id number] [id number] 43 SmithKline (SKB) complet ed hepatitis B vaccine, adult dosage DoD typhoid Vi capsular polysaccharid e vac 2009 [id number] 101 sanofi pasteur complet ed typhoid Vi capsular polysacch aride vac 10/08/09 Given Ambulat ory Pharmac y hepatitis B adult vaccine 2009 [id number] 5AA 43 GlaxoSmithKli ne complet ed hepatitis B adult vaccine 10/08/09 Given Ambulat ory Pharmac y hepatitis B vaccine, adult dosage 1 2009 [id number] [id number] 43 SmithKline (SKB) complet ed hepatitis B vaccine, adult dosage DoD typhoid Vi capsular polysaccharid e vaccine 1 2009 [id number] 101 Sanofi Pasteur (PMC) complet ed typhoid Vi capsular polysacch aride vaccine DoD Novel influenza-H1N 1-09, all formulations 0 2009 128 () Not Given Novel influenza -[id number], all formulati ons DoD typhoid vaccine, parenteral 2006 [id number] 41 sanofi pasteur complet ed typhoid vaccine, parentera l 07/05/07 Given Ambulat ory Pharmac y typhoid vaccine, parenteral, other than acetone-kille d, dried 1 2006 [id number] 41 Sanofi Pasteur ([facility]) complet ed typhoid vaccine, parentera l, other than acetone-k illed, dried DoD varicella virus vaccine 0 2005 21 () Not Given varicella virus vaccine DoD vaccinia (smallpox) vaccine 2005 [id number] [employer] [facility] complet ed vaccinia (smallpox ) vaccine 05/19/06 Given Ambulat ory Pharmac y vaccinia (smallpox) vaccine 1 2005 [id number] 75 [facility] ([facility]) complet ed vaccinia (smallpox ) vaccine DoD typhoid vaccine, parenteral 2004 [id number] 41 sanofi pasteur complet ed typhoid vaccine, parentera l 04/14/05 Given Ambulat ory Pharmac y typhoid vaccine, parenteral, other than acetone-kille d, dried 1 2004 [id number] 41 Sanofi Pasteur ([facility]) complet ed typhoid vaccine, parentera l, other than acetone-k illed, dried DoD anthrax vaccine 2003 [id number] 24 [employer] complet ed anthrax vaccine 06/23/04 Given Ambulat ory Pharmac y anthrax vaccine 6 2003 [id number] 24 [employer] [place] ([facility]) complet ed anthrax vaccine DoD anthrax vaccine 2003 [id number] 24 [employer] complet ed anthrax vaccine 10/22/03 Given Ambulat ory Pharmac y anthrax vaccine 5 2003 [id number] 24 [employer] [place] ([facility]) complet ed anthrax vaccine DoD typhoid vaccine, parenteral 2002 [id number] 41 sanofi pasteur complet ed typhoid vaccine, parentera l 03/19/03 Given Ambulat ory Pharmac y anthrax vaccine 2002 [id number] 24 [employer] complet ed anthrax vaccine 03/19/03 Given Ambulat ory Pharmac y anthrax vaccine 4 2002 [id number] 24 [employer] [place] (MIP) complet ed anthrax vaccine DoD typhoid vaccine, parenteral, other than acetone-kille d, dried 0 2002 [id number] 41 Sanofi Pasteur ([facility]) complet ed typhoid vaccine, parentera l, other than acetone-k illed, dried DoD anthrax vaccine 2001 [id number] 24 [employer] complet ed anthrax vaccine 08/30/02 Given Ambulat ory Pharmac y anthrax vaccine 3 2001 [id number] 24 [employer] [place] ([facility]) complet ed anthrax vaccine DoD anthrax vaccine 2001 [id number] 24 [employer] complet ed anthrax vaccine 08/16/02 Given Ambulat ory Pharmac y anthrax vaccine 2 2001 [id number] 24 [employer] [place] ([facility]) complet ed anthrax vaccine DoD anthrax vaccine 2001 [id number] 24 [employer] complet ed anthrax vaccine 08/02/02 Given Ambulat ory Pharmac y anthrax vaccine 1 2001 [id number] 24 [employer] [place] ([facility]) complet ed anthrax vaccine DoD tuberculin purified protein derivative 2001 [id number] 96 sanofi pasteur complet ed tuberculi n purified protein derivativ e 05/15/02 Given Ambulat ory Pharmac y tuberculin purified protein derivative 2000 [id number] 96 sanofi pasteur complet ed tuberculi n purified protein derivativ e 05/10/01 Given Ambulat ory Pharmac y typhoid vaccine, parenteral 2000 [id number] 41 sanofi pasteur complet ed typhoid vaccine, parentera l 01/17/01 Given Ambulat ory Pharmac y typhoid vaccine, parenteral, other than acetone-kille d, dried 0 2000 [id number] 41 Sanofi Pasteur ([facility]) complet ed typhoid vaccine, parentera l, other than acetone-k illed, dried DoD tuberculin purified protein derivative 1999 [id number] [address] [facility] complet ed tuberculi n purified protein derivativ e 05/17/00 Given Ambulat ory Pharmac y tetanus-dipht h toxoids (Td) adult/adol 1999 [id number] 09 sanofi pasteur complet ed tetanus-d iphth toxoids (Td) adult/ado l 05/17/00 Given Ambulat ory Pharmac y tetanus and diphtheria toxoids, adsorbed, preservative free, for adult use (2 Lf of tetanus toxoid and 2 Lf of diphtheria toxoid) 0 1999 [id number] 09 Sanofi Pasteur ([facility]) complet ed tetanus and diphtheri a toxoids, adsorbed, preservat maisha free, for adult use (2 Lf of tetanus toxoid and 2 Lf of diphtheri a toxoid) DoD yellow fever vaccine 1999 [id number] 37 sanofi pasteur complet ed yellow fever vaccine 03/15/00 Given Ambulat ory Pharmac y yellow fever vaccine 0 1999 [id number] 37 Sanofi Pasteur (PMC) complet ed yellow fever vaccine DoD influenza virus vaccine, whole virus 0 1998 16 () Not Given influenza virus vaccine, whole virus DoD typhoid vaccine, live, oral 1998 350510. 1A 25 [employer] [place] complet ed typhoid vaccine, live, oral 12/17/98 Given Ambulat ory Pharmac y hepatitis A adult vaccine 1998 [id number] 52 Merck & Company Inc complet ed hepatitis A adult vaccine 12/17/98 Given Ambulat ory Pharmac y typhoid vaccine, live, oral 0 1998 120241. 1A 25 [place] [facility] (SI) complet ed typhoid vaccine, live, oral DoD hepatitis A vaccine, adult dosage 2 1998 [id number] 52 Merck (MSD) complet ed hepatitis A vaccine, adult dosage DoD typhoid vaccine, parenteral 1998 41 complet ed typhoid vaccine, parentera l 12/16/98 Given Ambulat ory Pharmac y typhoid vaccine, parenteral, other than acetone-kille d, dried 0 1998 41 () complet ed typhoid vaccine, parentera l, other than acetone-k illed, dried DoD hepatitis A adult vaccine 1998 52 complet ed hepatitis A adult vaccine 11/30/98 Given Ambulat ory Pharmac y hepatitis A vaccine, adult dosage 2 1998 52 () complet ed hepatitis A vaccine, adult dosage DoD influenza virus vaccine, whole virus 0 1997 16 () Not Given influenza virus vaccine, whole virus DoD influenza virus vaccine, whole virus 1996 16 complet ed influenza virus vaccine, whole virus 07/02/97 Given Ambulat ory Pharmac y influenza virus vaccine, whole virus 0 1996 16 () complet ed influenza virus vaccine, whole virus DoD hepatitis A adult vaccine 1996 52 complet ed hepatitis A adult vaccine 09/09/96 Given Ambulat ory Pharmac y hepatitis A vaccine, adult dosage 1 1996 52 () complet ed hepatitis A vaccine, adult dosage DoD hepatitis A adult vaccine 1996 [id number] 52 GlaxoSmithKli ne complet ed hepatitis A adult vaccine 09/01/96 Given Ambulat ory Pharmac y hepatitis A vaccine, adult dosage 1 1996 [id number] 52 SmithAddison (SKB) complet ed hepatitis A vaccine, adult dosage DoD typhoid, parenteral, AKD 1995 53 complet ed typhoid, parentera l, AKD 12/31/95 Given Ambulat ory Pharmac y typhoid vaccine, parenteral, acetone-kille d, dried ([place] ) 2 1995 53 () complet ed typhoid vaccine, parentera l, acetone-k illed, dried ([place] ) DoD poliovirus vaccine, live, oral 1991 02 complet ed polioviru s vaccine, live, oral 10/02/91 Given Ambulat ory Pharmac y trivalent poliovirus vaccine, live, oral 0 1991 02 () complet ed trivalent polioviru s vaccine, live, oral DoD tetanus-dipht h toxoids (Td) adult/adol 1989 09 complet ed tetanus-d iphth toxoids (Td) adult/ado l 05/02/90 Given Ambulat ory Pharmac y tetanus and diphtheria toxoids, adsorbed, preservative free, for adult use (2 Lf of tetanus toxoid and 2 Lf of diphtheria toxoid) 0 1989 09 () complet ed tetanus and diphtheri a toxoids, adsorbed, preservat maisha free, for adult use (2 Lf of tetanus toxoid and 2 Lf of diphtheri a toxoid) DoD tetanus-dipht h toxoids (Td) adult/adol 1989 09 complet ed tetanus-d iphth toxoids (Td) adult/ado l 04/01/90 Given Ambulat ory Pharmac y tetanus and diphtheria toxoids, adsorbed, preservative free, for adult use (2 Lf of tetanus toxoid and 2 Lf of diphtheria toxoid) 0 1989 09 () complet ed tetanus and diphtheri a toxoids, adsorbed, preservat maisha free, for adult use (2 Lf of tetanus toxoid and 2 Lf of diphtheri a toxoid) DoD yellow fever vaccine 1989 37 complet ed yellow fever vaccine 03/01/90 Given Ambulat ory Pharmac y yellow fever vaccine 0 1989 37 () complet ed yellow fever vaccine DoD measles/mumps /rubella virus vaccine 1988 03 complet ed measles/m umps/rube lla virus vaccine 05/02/89 Given Ambulat ory Pharmac y measles, mumps and rubella virus vaccine 0 1988 03 Transcribed (TRS) complet ed measles, mumps and rubella virus vaccine DoD Encounters Combined list of: 1) Encounters from Department of Veterans Affairs facilities going backup to the last 18 months, not all VA inpatient encounters are included; 2) Encounters from the Department of Defense facilities going backup to 280 months. Location Location Details Encounter Type Encounter Number Reason For Visit Attending Provider ADM Date DC Date Status Disposition Source Theater Facility OUTPATIENT [id number] 07/02 Released w/o Limitations Theater Facilit y Theater Facility OUTPATIENT [id number] Theater Provider 05/31 Released w/o Limitations Theater Facilit y [address] [place] [address] Bal [facility]) OUTPATIENT [id number] review medical record for immuniz ation exempti on YAMILEX PAIZ 07/05 Released w/o Limitations [address] [place] [address] Bal Oton[facility]O ld[facility] c) [address] [place] [address] Bal [facility])([facility]) OUTPATIENT [id number] provide civilia n EUGENIE Martinez 08/02 Released w/o Limitations [address] [place] [address] Bal Otoniel [facility]O ldclini c) [address] [place] [address] Bal [facility])([facility]) OUTPATIENT [id number] Notes Entered by: ELIN ALARCON 04 Oct 2017 0757 ------- ------- ------- ------- -- Fitness exempti on YAMILEX PAIZ 10/04 Released w/o Limitations [employer] ([facility]O ldclini c) [employer] [facility] B ([facility])([facility]) OUTPATIENT [id number] Notes Entered by: NATALIA MARTINEZ 07 Dec 2017 1054 ------- ------- ------- ------- -- LALO Joseph 12/07 Released w/o Limitations [employer] ([facility])(O ldclini c) [employer] [facility] B ([facility]) OUTPATIENT [id number] Notes Entered by: SARITA PARK 10 Oct 2018 0945 ------- ------- ------- ------- -- Ermiass Exempti on LALO VALENTINE 10/10 Released w/o Limitations [employer] [facility] B ([facility]) [employer] [facility] B ([facility]) OUTPATIENT [id number] Notes Entered by: Gerson KOROMA 06 Dec 2018 1501 ------- ------- ------- ------- -- ANA Reyes 12/06 Released w/o Limitations [employer] [facility] B ([facility]) [facility] B ([facility]) OUTPATIENT [id number] Notes Entered by: SARITA PARK 09 Oct 2019 0837 ------- ------- ------- ------- -- Fitness Exempti on ANA KOROMA 10/09 Released w/o Limitations [employer] ([facility]09 [facility]) [facility]) TELE CONSULT [id number] VIVIANA FIELD 11/[address] [place] [address] Bal [facility])([facility]) [address] [place] [address])([facility]) TELE CONSULT [id number] Notes Entered by: ELIN ALARCON 12 Sep 2020 1153 ------- ------- ------- ------- -- Civilia n NIKKI Wild 09/12 Other Not Elsewhere Classified [address] [place] [address] Bal [facility])(09 [facility]) [address] [place] [address])([facility]) OUTPATIENT [id number] Notes Entered by: Gerson KOROMA 09 Oct 2020 1432 ------- ------- ------- ------- -- phaq ANA KOROMA 10/09 Released w/o Limitations [address] [place] [address])(09 [facility]) [address] [place] [address])([facility]) OUTPATIENT [id number] Notes Entered by: Gerson KOROMA 05 Feb 2021 0758 ------- ------- ------- ------- -- knee pain ANA KOROMA 02/05 Released w/o Limitations [address] [place] [address])(09 [facility]) [address] [place] [address])([facility]) OUTPATIENT [id number] Mo sheridan/ HAIM Holder 03/24 Released with Work/Duty Limitations [address] [place] [address])([address] [facility]) [address] [place] [address])([address] [place] [address]) TELE CONSULT [id number] Notes Entered by: ELIN ALARCON 05 Jun 2021 1511 ------- ------- ------- ------- -- Update NIKKI ALARCON 06/05 Other Not Elsewhere Classified [employer] [facility] [place] ([facility] [facility] [facility]) [employer] [facility] [place] ([facility])([facility]) TELE CONSULT [id number] Notes Entered by: ELIN ALARCON 04 Aug 2021 1214 ------- ------- ------- ------- -- Update NIKKI AALRCON 08/04 Other Not Elsewhere Classified [employer] [facility] [place] ([facility]) Procedures Combined list of: 1) Procedures from Department of Veterans Affairs facilities going back up to thelast 18 months, not all [place] non-surgical procedures are included; 2) All procedures from the Department of Defense facilities. Procedure Procedure Type Code Date Perfomer Comments Sourc e No data available for this section Ambulato ry Pharmacy PSYCHOLOGICAL TSTING (INCL PSYCHODIAG ASSESSMNT, EMOTITY, INTELLECTUAL ABILITIES, PERSONALITY &PSYCHOPATHOLOGY, EG, MMPI), ADMINISTERED COMPUTER, W QUALIFIED HEALTH MAGAZINE WRITER INTERPRET &RPT 6 [facility] Psychologic Testing And Report Administered By Computer Psychologic Testing And Report Administered By Computer [id number] [facility] Social History Combined list of available smoking, tobacco, and other social history from Department of Defense and Veterans Affairs facilities. Social History Type Response Date Comment Sour e This section is an empty social history section. DoD Assessment and Plan Combined list of future care activities from Department of Defense and Veterans Affairs facilities (e.g., assessment and plan notes, appointments, orders, and referrals). Additional future care activities may be listed in the Plan of Care section. Result Assessment and Plan Date Source Assessment and Plan No data available for this section 10/27/2024 Ambulatory Pharmacy Functional Status Combined list of recent functional and cognitive assessments recorded at Department of Defense and Veterans Affairs (VA).VA Functional [place] Measurement (FIM) Scale: 1 = Total Assistance (Subject = 0% +), 2 = Maximal Assistance (Subject = 25% +), 3 = Moderate Assistance (Subject = 50% +), 4 = Minimal Assistance (Subject = 75% +), 5 = Supervision, 6 = Modified [place] (Device), 7 = Complete [place] (Timely, Safely). Assessment Date/Time Source Assessment Type Assessment Skill Assessment Score Assessment Details No data available for this section
--- OUTSIDE RECORDS SUMMARY | 2024-10-27 12:03 | XMS_ITS | Continuity of Care Document ---
Author Organization [facility]. If a dditional information is needed, contact Health Information Management at [phone] Address [address] [place] [address] Phone Care Team Providers Care Computational Theory Scientist Name Role Phone Unavailable Unavailable Unavailable Unavailable Unavailable Unavailable Unavailable Unavailable Unavailable Unavailable Unavailable Unavailable Unavailable Unavailable Unavailable Allergies and Adverse Reactions sulfamethoxazole From BACTRI M(Allergy) Onset: 06-Aug-2022 Reaction:HIVES trimethoprim From BACTRIM(Al lergy) Onset: 06-Aug-2022 Reaction:HIVES Medications 10 ML fentaNYL 0.05 MG/ML In jection [Sublimaze];Provider Administration Instructions:For PRN breakthrough pain order: breakthough pain ispain >/=4 30 min after IV dose or 1 hr after PO dose.BLFR-K-LNAR-CTXZH-C-ALOP DRUG Quantity:1 CHAMA.23 Start:06-Aug-2022 Status:Discontinued Comments:Provider Administration Instructions:For PRN breakthrough pain order: breakthough pain ispain >/=4 30 min after IV dose or 1 hr after PO dose.TCGP-K-MKJT-YWDDO-D-CWZS DRUG 1 ML ePHEDrine sulfate 50 MG /ML Injection;Provider Administration Instructions:AQXL-X-GRRW-SOUND-A-L SELVIN DRUG Quantity:1 CHAMA.23 Start:06-Aug-2022 Comments:Provider Administration Instructions:ZECB-I-XCHX-SOUND-A- LIKE DRUG 100 ML acetaminophen 10 MG/M L Injection Quantity:1 CHAMA.23 Start:06-Aug-2022 Status:Discontinued dexAMETHasone sodium phospha te 4 MG/ML Injectable Solution;Provider Administration Instructions:EDDH-T-ZFSJ-SOUND-A-L SELVIN DRUGSLOW IV PUSH Quantity:1 A. Start:06-Aug-2022 Comments:Provider Administration Instructions:AZOD-F-VCBQ-SOUND-A- LIKE DRUGSLOW IV PUSH 2 ML ondansetron 2 MG/ML Injection;Provider Administration Instructions: MAY GIVE IVP OVER NOT LESS THAN 30 SECONDS - PREFERABLEOVER 2 MINUTES. FOR NAUSEA/VOMITING Quantity:1 A. Start:06-Aug-2022 Status:Discontinued Comments:Provider Administration Instructions: MAY GIVE IVP OVER NOT LESS THAN 30 SECONDS - PREFERABLEOVER 2 MINUTES. FOR NAUSEA/VOMITING 2 ML famotidine 10 MG/ML Injection;Provider Administration Instructions:STORED IN REFRIGERATORDILUTE WITH 5-10ML NS; GIVE OVER 2 MINUTES Quantity:1 Balbina Luong MD Start:06-Aug-2022 Status:Discontinued Comments:Provider Administration Instructions:STORED IN REFRIGERATORDILUTE WITH 5-10ML NS; GIVE OVER 2 MINUTES rocuronium bromide 10 MG/ML Injectable Solution;Provider Administration Instructions: WARNING: PARALYZING AGENT, CAUSES RESPIRATORY ARREST. ISTHE PATIENT VENTILATED? Quantity:1 Balbina Luong MD Start:06-Aug-2022 Status:Discontinued Comments:Provider Administration Instructions: WARNING: PARALYZING AGENT, CAUSES RESPIRATORY ARREST. ISTHE PATIENT VENTILATED? 10 ML propofol 10 MG/ML Injection;Provider Administration Instructions: SULFITE FREE Quantity:1 Balbina Luong MD Start:06-Aug-2022 Status:Discontinued Comments:Provider Administration Instructions: SULFITE FREE midazolam 1 MG/ML Injection; Provider Administration Instructions:FRRB-T-TKOV-SOUND-A-L SELVIN DRUG Quantity:1 Balbina Luong MD Start:06-Aug-2022 Comments:Provider Administration Instructions:MFBT-H-CXIM-SOUND-A- LIKE DRUG succinylcholine chloride 20 MG/ML Injectable Solution [Quelicin];Provider Administration Instructions: WARNING: PARALYZING AGENT, CAUSES RESPIRATORY ARREST. ISTHE PATIENT VENTILATED? Quantity:1 Balbina Luong MD Start:06-Aug-2022 Comments:Provider Administration Instructions: WARNING: PARALYZING AGENT, CAUSES RESPIRATORY ARREST. ISTHE PATIENT VENTILATED? 10 ML lidocaine hydrochlorid e 20 MG/ML Injection Quantity:1 Balbina Luong MD Start:06-Aug-2022 Status:Discontinued 10 ML fentaNYL 0.05 MG/ML In jection [Sublimaze];Provider Administration Instructions:For PRN breakthrough pain order: breakthough pain ispain >/=4 30 min after IV dose or 1 hr after PO dose.HUYQ-B-VPEA-LQGRK-M-LWHU DRUG Quantity:1 Balbina Luong MD Start:06-Aug-2022 Comments:Provider Administration Instructions:For PRN breakthrough pain order: breakthough pain ispain >/=4 30 min after IV dose or 1 hr after PO dose.IOXF-Q-LHBX-FMPKI-H-EOGH DRUG vancomycin 1000 MG Injection Quantity:1 Balbina Luong MD Start:06-Aug-2022 30 ML ROPivacaine hydrochlor austin 5 MG/ML Injection [Naropin];Provider Administration Instructions:NOT FOR IV USE Quantity:1 Balbina Luong MD Start:06-Aug-2022 Status:Discontinued Comments:Provider Administration Instructions:NOT FOR IV USE bacitracin zinc 0.5 UNT/MG T opical Ointment Quantity:1 Balbina Luong MD Start:06-Aug-2022 sulfamethoxazole 80 MG/ML / trimethoprim 16 MG/ML Injectable Solution;Provider Administration Instructions: DO NOT REFRIGERATE Quantity:1 Balbina Luong MD Start:06-Aug-2022 Status:Discontinued Comments:Provider Administration Instructions: DO NOT REFRIGERATE 100 ML gentamicin 0.8 MG/ML Injection Quantity:1 Balbina Luong MD Start:06-Aug-2022 Status:Discontinued 100 ML fluconazole 2 MG/ML I njection Quantity:1 Balbina Luong MD Start:06-Aug-2022 Status:Discontinued methIMAzole;5 MG PO DAILY Start:05-Aug-2022 Comments:5 MG PO DAILY Encounters Ambulatory 05-Aug-2022 19:30 [facility]
--- OUTSIDE RECORDS SUMMARY | 2024-10-27 12:03 | XMS_ITS | Referral Summary ---
Author Organization [facility] Address [address] [place] [id number] Care Team Providers Care Foreign Exchange Student Coordinator Name Role Phone Brady Kaufman MD Primary Care Prov ider Allergies Active Allergy Reactions Criticality Noted Date Comments Sulfamethoxazole-Trimethoprim Rash Medium 2021 Medications methIMAzole (TAPAZOLE) 5 mg tablet Take 1 tablet (5 mg total) by mouth daily 30 tablet 1 07/18/2022 Active Active Problems Problem Noted Date Diagnosed Date Preop cardiovascular exam 07/02/2022 Abnormal ECG 07/02/2022 Erectile dysfunction 07/02/2022 Hyperthyroidism 05/05/2022 Social History Tobacco Use Types Packs/Day Years Used Date Smoking Tobacco: Never Smokeless Tobacco: Never Tobacco Cessation:Counseling Given: Not Answered Personal Safety Answer Date Recorded Getting School Help Needed Not on file 11/15 Sex and Gender Information Value Date Recorded Sex Assigned at Not on file Legal Sex Male 3:06 PM CDT Gender Identity Not on file Sexual Orientation Not on file Last Filed Vital Signs Vital Sign Reading [...] 07/02/2022 3:28 PM CDT Plan of Treatment Not on file Insurance [facility] Care Teams Foreign Exchange Student Coordinator Relationship Specialty Start Date End Date Brady Kaufman MD [address] [place] [address] PCP - General Family Medicine 05/01/22
--- OUTSIDE RECORDS SUMMARY | 2024-10-27 12:03 | XMS_ITS | Encounter Summary ---
Author Organization [facility] [employer] [facility] Address [address] [place] [address] Phone Care Team Providers Care Bookbinder Chief Name Role Phone Brady Kaufman MD Primary Care Prov ider Encounter Details Date Type Department Care Team (Latest Contact Info) Description 04/23/2022 Orders Only [facility] EML Scanning, Provider Social History Tobacco Use Types Packs/Day Years Used Date Smoking Tobacco: Never Assessed Sex and Gender Information Value Date Recorded Sex Assigned at Not on file Legal Sex Male 3:06 PM CDT Gender Identity Not on file Sexual Orientation Not on file documented as of this encounter Plan of Treatment Not on file documented as of this encounter Procedures Procedure Name Priority Date/Time Associated Diagnosis Comments SCAN - LABS 04/23/2022 SCAN - RADIOLOGY/IMAGING 04/22/2022 documented in this encounter Results * SCAN - LABS (04/23/2022) us Provider Scanning Final Result * SCAN - RADIOLOGY/IMAGING (04/22/2022) Anatomical Region Laterality Modality Other us Provider Scanning Final Result documented in this encounter Visit Diagnoses Not on filedocumented in this encounter Care Teams Bookbinder Chief Relationship Specialty Start Date End Date Brady Kaufman MD [address] [place] [address] PCP - General Family Medicine 05/01/22 documented as of this encounter
== END 2024-10-27 10:37 | disposition home or self-care (01) ==
PROVIDERS: Visit Provider Urology
DX: N20.0 Calculus of kidney (principal)
CPT/HCPCS: 74018

== ENCOUNTER 2025-05-27 07:58 | Outpatient (CLI) | payer BC, SELFPAY ==
--- OUTSIDE RECORDS SUMMARY | 2025-05-27 08:01 | XMS_ITS | Clinical Summary ---
Author Organization [facility] Address [address] [place] [id number] Care Team Providers Care Homeopathic Doctor Name Role Phone Brady Kaufman MD Primary [...] 3:28 PM CDT Height 188 cm (6' 2) 07/02/2022 3:28 PM CDT Body Mass Index 26.45 07/02/2022 3:28 PM CDT Plan of Treatment Health Maintenance Due Date Last Done Comments Colon Cancer Screening-Colonoscopy 1971 Depression Screening 1971 Hepatitis C Screening 1971 Prostate Cancer Screening-PSA 1971 DTaP/Tdap/Td Vaccine (1 - Tdap) 1982 Hepatitis B Screening 1989 Regular Well Visit/Exam 18-64 1989 Zoster Vaccine (1 of 2) 2021 Covid-19 Vaccine (2 - 2024-2 6 season) 2025 12/10/2020 Influenza Vaccine (#1) 2025 Pneumococcal vaccine <65 Aged Out No longer eligible based on patient's age to complete this topic Insurance [facility] Care Teams Homeopathic Doctor Relationship Specialty Start Date End Date Brady Kaufman MD PCP - General Family Medicine 05/01/22
--- OUTSIDE RECORDS SUMMARY | 2025-05-27 08:01 | XMS_ITS | Encounter Summary ---
Author Organization [facility] [employer] [facility] Address [address] [place] [address] Phone Care Team Providers Care Hay Farmer Name Role Phone Brady Kaufman MD Primary [...] on filedocumented in this encounter Care Teams Hay Farmer Relationship Specialty Start Date End Date Brady Kaufman MD PCP - General Family Medicine 05/01/22 documented as of this encounter
== END 2025-05-27 07:59 | disposition home or self-care (01) ==
PROVIDERS: PCP Family Medicine Adolescent Medicine; Visit Provider Family Medicine Adolescent Medicine
DX: H93.13 Tinnitus, bilateral (principal); H91.93 Unspecified hearing loss, bilateral
CPT/HCPCS: 99199